=== PATIENT | female | born 2000 | race Two or more races ===

== ENCOUNTER → 2025-06-02 | Emergency (ER) | payer BC ==
[~2025-06-02] VITALS: Ht 160 cm; Wt 54.4 kg
[~2025-06-02] MED LIST: FAMOTIDINE/PF 20 MG/2 ML VIAL IV STA; FAMOTIDINE/PF 20 MG/2 ML VIAL ONE; ONDANSETRON 4 MG TAB.RAPDIS PO ONE; ONDANSETRON HCL 2 MG/ML VIAL IV STA
[2025-06-03 01:44] LABS: BASO % 0.1 % (0.1-1.2); EOS # 0.00 (0.04-0.54); EOS % 0.0 % (0.7-7.0); LYMPH # 1.46 (1.18-3.74); LYMPH % 14.7 % (19.3-53.1); MEAN PLATELET VOLUME 10.00 fl (9.4-12.4); MONO # 0.34 (0.24-0.82); MONO % 3.4 % (4.7-12.5); NEUT # 8.07 (1.56-6.13); NEUT % 81.4 % (34.0-71.1); RED CELL DISTRIBUTION WIDTH 12.5 % (11.6-14.4)
[2025-06-03 02:22] LABS: BUN CREA RATIO 16.0 (7.0-25.0); CREATININE SERUM 0.67 mg/dL (0.55-1.02); GFR 107.24; GLUCOSE FASTING 104.0 mg/dL (65-100); OSMOLALITY SERUM 268.0 MOSM/KG (275-295)
[2025-06-03 02:39] LABS: URINE APPEARANCE Clear; URINE BILIRRUBIN Negative (NEGATIVE); URINE BLOOD Negative; URINE COLOR Yellow; URINE GLUCOSE Negative (NEGATIVE); URINE LEUKOCYTE Negative; URINE NITRATE Negative; URINE PROTEIN 30 (NEGATIVE); URINE UROBILINOGEN 0.2 E.U./dl
[2025-06-03 02:42] LABS: URINE CAST 1.55 uL (0.0-1.40); URINE EPITHELIAL CELLS 68.3 uL (0.0-38.8); URINE RBC 55.6 uL (0.0-20.8); URINE WBC 81.1 uL (0.0-23.2)
[2025-06-03 02:45] LABS: TYPE CELLS SQUAMOUS; URINE KETONE 80 (NEGATIVE)
== END | disposition left against medical advice (07) ==
LOC: ER 22:19
PROVIDERS: General Practice
DX: R10.84 Generalized abdominal pain (principal)